=== PATIENT | male | born 1980 | race Caucasian/White ===

== ENCOUNTER 2018-06-23 18:17 | Emergency (ER) | payer SELFPAY ==
[~2018-06-23] VITALS: Ht 185.4 cm; Wt 101.6 kg
[2018-06-23 18:20] VITALS: Ht 185.4 cm; Wt 101.6 kg
[2018-06-23 21:05] VITALS: BP 142/99
== END 2018-06-23 21:06 | disposition home or self-care (01) ==
LOC: ED 18:17
DX: M23.91 Unspecified internal derangement of right knee (principal)
CPT/HCPCS: J1885